=== PATIENT | female | born 1990 | race Caucasian/White ===

== ENCOUNTER 2016-11-11 19:48 | Emergency (ER) | payer SELFPAY ==
[~2016-11-11] VITALS: Ht 170.2 cm; Wt 62.0 kg
[~2016-11-11 19:48] MED LIST: AMOX875 PO; DICL25 PO; DOXY100T PO; METR-1 PO
[2016-11-11 20:16] VITALS: BP 106/52; PULSE 61; RESP 18; TEMP 98.3; O2SAT 100
[2016-11-11] MEDS ORDERED: BACT800T5 PO (20:29)
--- NOTE | 2016-11-11 20:29 | PD ---
HPI . Abscess Chief Complaint: Skin Problem Time Seen by Provider: 20:16 Travel History International Travel<30 days: No Contact w/Intl Traveler<30days: No Traveled to known affect area: No History of Present Illness HPI Patient presents with a one-week history of an abscess in the right eyebrow. She states that it started as a pimple. She states that she tried to pop the pimple and that she has subsequently developed increasing pain and swelling in the area. She states that she has tried to drain it at home and has only been able to drain some blood from the area. There has been no pus. Pain is a constant, throbbing sensation which she rates 10/10. No exacerbating or relieving factor. Patient has had no associated fevers or chills. PFSH Past Medical History Diminished Hearing: No Genitourinary: Yes (Ovarian cysts) Tetanus Vaccination: < 5 Years Influenza Vaccination: No ?: Not LMP: SEPTEMBER 2016, UNSURE OF DATE : 2 Para: 2 Miscarriage: 0 : 0 Past Surgical History Surgical History: No Previous Surgery Social History Alcohol Use: No Tobacco Use: Yes (1 PPD) Substance Use: Yes (MARIJUANA) Allergies-Medications (Allergen,Severity, Reaction): Coded Allergies: No Known Allergies (Unverified , 09/24/15) Reported Meds & Prescriptions Reported Meds & Active Scripts Active Bactrim DS (Sulfamethoxazole-Trimethoprim) 800-160 Mg Tab 1 Tab PO BID Voltaren (Diclofenac Sodium) 25 Mg Tab 25 Mg PO TID PRN Flagyl (Metronidazole) 500 Mg Tab 500 Mg PO TID TAKE UNTIL GONE Doxycycline Hyclate 100 mg (Doxycycline Hyclate) 100 Mg Tab 1 Tab PO Q12H 7 Days Amoxicillin 875 Mg Tab 875 Mg PO BID 10 Days Review of Systems Except as stated in HPI: all other systems reviewed are Neg General / Constitutional: No: Fever, Chills Skin: Positive Lesions Physical Exam Narrative GENERAL: Awake and alert and in no acute distress. SKIN: Warm and dry. Area of induration and tenderness in the right eyebrow. It is about 1 cm in diameter. There is central fluctuance. HEAD: Atraumatic. Normocephalic. EYES: Pupils equal and round. NECK: Trachea midline. CARDIOVASCULAR: Regular rate and rhythm. RESPIRATORY: No accessory muscle use. MUSCULOSKELETAL: No obvious deformities. No edema. NEUROLOGICAL: Awake and alert. No obvious cranial nerve deficits. Motor grossly within normal limits. Normal speech. PSYCHIATRIC: Appropriate mood and affect; insight and judgment normal. Data Data Last Documented VS Vital Signs Date Time Temp Pulse Resp B/P Pulse Ox O2 Delivery O2 Flow Rate FiO2 11/11/16 20:22 61 18 11/11/16 20:16 98.3 106/52 100 Orders Lidocaine 1% Inj (50 Ml) (Xylocaine 1% I (11/11/16 20:30) [facility] Medical Decision Making Medical Screen Exam Complete: Yes Emergency Medical Condition: Yes Differential Diagnosis My differential diagnosis includes but is not limited to localized wound infection, cellulitis, abscess Narrative Course Patient presents with an abscess in her right eyebrow. It will be I&D. She will then be placed on Septra. Procedures Procedure Narrative INCISION AND DRAINAGE OF ABSCESS: The area was prepped and was sterilely draped. A subcutaneous wheal of 1 % lidocaine with a total number 3 mL was used to anesthetize the area properly. A number 11 scalpel was used to make a 1 cm incision across the area of the abscess. The abscess was drained, complex loculations were broken down, and irrigated with normal saline. Cultures were obtained. Quarter inch iodoform packing was placed in the wound. Sterile dressing applied. Patient advised to have packing removed in two days. Diagnosis Primary Impression: Abscess Patient Instructions: Abscess Incision and Drainage (DC), General Instructions Additional Instructions: Return in 2 days for wound check Med/Other Pt SpecificInfo: Prescription(s) given Scripts Sulfamethoxazole-Trimethoprim (Bactrim DS)800-160 Mg Tab1 Tab PO BID #20 TAB Ref 0 Prov:Amber Payan MD 11/11/16 Disposition: 01 DISCHARGE HOME Condition: Stable Amber Payan MD Nov 11, 2016 20:29
[2016-11-11] MEDS ORDERED: LIDOCAINE HCL 1% 50 ML VIAL INFIL ONE (20:30)
== END 2016-11-11 21:06 | disposition home or self-care (01) ==
LOC: PHEFT 19:48
DX: L02.01 Cutaneous abscess of face (principal); B95.61 Methicillin susceptible Staphylococcus aureus infection as the cause of diseases classified elsewhere; F17.200 Nicotine dependence, unspecified, uncomplicated; Z87.42 Personal history of other diseases of the female genital tract
CPT/HCPCS: 10061; 86403; 87070; 87186; 87205

== ENCOUNTER 2017-05-21 18:20 | Emergency (ER) | payer OTHER ==
[~2017-05-21] VITALS: Ht 170.2 cm; Wt 59.1 kg
[~2017-05-21 18:20] MED LIST changes: +BACT800T5 PO
[2017-05-21 18:29] VITALS: BP 114/56; PULSE 68; RESP 12; TEMP 98.5; O2SAT 99
--- NOTE | 2017-05-21 21:27 | PD ---
Physical Exam Date Seen by Provider: May 21, 2017 Time Seen by Provider: 19:52 Narrative 26 year old female presents to the emergency department for evaluation of lower abdominal pain, vaginal spotting. She states she found out she was one month ago, but hasn't established with an OB yet. She denies any pain right now. Data Data Last Documented VS Vital Signs Date Time Temp Pulse Resp B/P (MAP) Pulse Ox O2 Delivery O2 Flow Rate FiO2 05/21/17 18:29 98.5 68 12 114/56 (75) 99 Orders Orders Beta Hcg (Quant/Titer) (05/21/17 18:34) Complete Blood Count With Diff (05/21/17 18:34) Basic Metabolic Panel (Bmp) (05/21/17 18:34) Urinalysis - C+S If Indicated (05/21/17 18:34) Ed Urine Pregnancytest Poc (05/21/17 18:34) MDM Supervised Visit with ARGENIS: No Narrative Course 26 year old female presents to the emergency department for evaluation of abdominal pain, vaginal spotting while . Patient is initially seen in triage and work up is initiated. Patient left AMA before she could be moved to a medical bed. Diagnosis Primary Impression: Left against medical advice Additional Impression: Vaginal spotting Disposition: 07 AGAINST MEDICAL ADVICE Alta Hyatt May 21, 2017 21:27
== END 2017-05-21 19:52 | disposition left against medical advice (07) ==
LOC: NED 18:20
DX: O26.851 Spotting complicating pregnancy, first trimester (principal); Z53.21 Procedure and treatment not carried out due to patient leaving prior to being seen by health care provider
CPT/HCPCS: 99281

== ENCOUNTER → 2017-07-16 | Outpatient (CLI) | payer MEDICAID, OTHER | LOC: HPND 13:16 | PROVIDERS: ATTEND Obstetrics & Gynecology | DX: O35.1XX0 Maternal care for (suspected) chromosomal abnormality in fetus, not applicable or unspecified (principal); O99.322 Drug use complicating pregnancy, second trimester; O09.212 Supervision of pregnancy with history of pre-term labor, second trimester | CPT/HCPCS: 76811; 76817 ==

== ENCOUNTER → 2017-07-30 | Outpatient (CLI) | payer MEDICAID | LOC: HPND 10:29 | PROVIDERS: ATTEND Obstetrics & Gynecology | DX: O99.322 Drug use complicating pregnancy, second trimester (principal); O09.212 Supervision of pregnancy with history of pre-term labor, second trimester | CPT/HCPCS: 76815; 76817 ==

== ENCOUNTER → 2017-08-13 | Outpatient (CLI) | payer MEDICAID | LOC: HPND 10:48 | PROVIDERS: ATTEND Obstetrics & Gynecology | DX: O99.322 Drug use complicating pregnancy, second trimester (principal); O09.212 Supervision of pregnancy with history of pre-term labor, second trimester; O99.332 Smoking (tobacco) complicating pregnancy, second trimester | CPT/HCPCS: 76816; 76817; 76825; 76827; 93325 ==

== ENCOUNTER → 2017-09-18 | Outpatient (CLI) | DX: O99.322 Drug use complicating pregnancy, second trimester (principal); O09.212 Supervision of pregnancy with history of pre-term labor, second trimester; O99.332 Smoking (tobacco) complicating pregnancy, second trimester ==

== ENCOUNTER → 2017-10-16 | Outpatient (CLI) | payer MEDICAID | LOC: HPND 10:23 | PROVIDERS: ATTEND Obstetrics & Gynecology | DX: O99.322 Drug use complicating pregnancy, second trimester (principal); O09.212 Supervision of pregnancy with history of pre-term labor, second trimester; O99.332 Smoking (tobacco) complicating pregnancy, second trimester | CPT/HCPCS: 76816 ==

== ENCOUNTER 2017-12-16 11:35 | Inpatient (IN) ==
--- NOTE | 2017-12-16 12:07 | P.HPOB ---
History of Present Illness Primary Care Physician: No Primary Care Physician History of Present Illness: This patient is a 27 yr G 3 p 0202 at 40 weeks and 6 days gestation with history of 2 deliveries both at 31 weeks gestation that was sent directly from ultrasound for induction of delivery. She [facility] She reports no complications with this . Endorses good movement. She denies leakage of fluid, vaginal bleeding, vaginal discharge. Reports that she is GBS unknown. OB Hx: 2 prior deliveries via spontaneous vaginal delivery, both at 31 weeks gestation. PMHx: None Surgical Hx: None Fam Hx: None Social Hx: Patient is an every day smoker and has smoked throughout the entirety of her . She smokes half a pack a day. She also smokes marijuana every 2 weeks with last use being 2 weeks ago. She lives at home with boyfriend, a cat, and her dog. Patient reports taking a 10 mg Lortab daily with last use being this morning. Patient admits that she discontinued care after winning the lottery. Meds: [id number] Flintstones vitamins and 40 mg of methadone daily but has not taken it in a couple of weeks. Allergies: None Weeks Gestation:: 40 Para: 2 : 3 - Inpatient Certification I certify that the inpatient services were ordered in accordance with Medicare regulations governing the order. This includes certification that hospital inpatient services are reasonable and necessary and in the case of services not specified as inpatient-only under 42 CFR 419.22(n), that they are appropriately provided as inpatient services in accordance to with the 2-midnight benchmark under 43 CFR 412.3(e) Estimated Total Length of Stay (Days): 2 Plans for Post Hospital Care: Home Review of Systems Constitutional: Denies chills, Denies fatigue, Denies fever(s), Denies headache( s) Eyes: Denies change in vision, Denies double vision, Denies loss of vision Cardiovascular: Reports foot swelling, Reports leg swelling, Denies chest pain, Denies fast heart rate, Denies rapid, pounding, or irregular heartbeat, Denies shortness of breath Respiratory: Denies shortness of breath, Denies shortness of breath with activity Gastrointestinal: Denies abdominal pain, Denies constipation, Denies loose stools, Denies nausea, Denies vomiting Genitourinary: Denies difficulty starting urination, Denies difficulty urinating , Denies painful urination, Denies pelvic pain, Denies urinary incontinence, Denies vaginal discharge Medications and Allergies Allergies Allergy/AdvReac Type Severity Reaction Status Date / Time No Known Allergies Allergy Verified 12/16/17 13:18 Home Medications Medication Instructions Recorded Confirmed Type methadone 40 mg PO DAILY 12/16/17 12/16/17 History Exam Narrative: GENERAL: Well-nourished, well-developed patient. SKIN: Warm and dry. HEAD: Normocephalic and atraumatic. EYES: No scleral icterus. No injection or drainage. ENT: No nasal drainage noted. Mucous membranes pink. Airway patent. NECK: Supple, trachea midline. No JVD. CARDIOVASCULAR: Regular rate and rhythm without murmurs, gallops, or rubs. RESPIRATORY: Breath sounds equal bilaterally. No accessory muscle use. ABDOMEN/GI: Abdomen soft, non-tender, bowel sounds present, no rebound, no guarding Gravid to 40 weeks size GENITOURINARY: External Genitalia: intact and normal in appearance Cervix: Soft Dilatation: 2 Effacement: 50% Station: -3 Presentation: Cephalic Membranes: Intact Uterine Contractions: None FHT's: Category: 1 Baseline: 100 Reactive: Yes Variability: Moderate Decels: No EXTREMITIES: Nonpitting edema bilaterally. BACK: Nontender without obvious deformity. No CVA tenderness. NEUROLOGICAL: Awake and alert. Moves all extremities without difficulty. Normal speech. Results - Labs CBC & Chem 7: 12/16/17 11:45 Group B Strep: unknown Caprini VTE Risk Assessment Caprini VTE Risk Assessment: No/Low Risk (score <= 1) Caprini Risk Assessment Model: Point Value = 1 Point Value = 2 Point Value = 3 Point Value = 5 Age 41-60 Minor surgery BMI > 25 kg/m2 Swollen legs Varicose veins or History of unexplained or recurrent spontaneous Oral contraceptives or hormone replacement Sepsis (< 1 month) Serious lung disease, including pneumonia (< 1 month) Abnormal pulmonary function Acute myocardial infarction Congestive heart failure (< 1 month) History of inflammatory bowel disease Medical patient at bed rest Age 61-74 Arthroscopic surgery Major open surgery (> 45 min) Laparoscopic surgery (> 45 min) Malignancy Confined to bed (> 72 hours) Immobilizing plaster cast Central venous access Age >= 75 History of VTE Family history of VTE Factor V Leiden Prothrombin [id number] Lupus anticoagulant Anticardiolipin antibodies Elevated serum homocysteine Heparin-induced thrombocytopenia Other congenital or acquired thrombophilia Stroke (< 1 month) Elective arthroplasty Hip, pelvis, or leg fracture Acute spinal cord injury (< 1 month) Prophylaxis Regimen: Total Risk Factor Score Risk Level Prophylaxis Regimen 0-1 Low Early ambulation 2 Moderate Order ONE of the following: *Sequential Compression Device (SCD) *Heparin 5000 units SQ BID 3-4 Higher Order ONE of the following medications: *Heparin 5000 units SQ TID *Enoxaparin/Lovenox 40 mg SQ daily (WT < 150 kg, CrCl > 30 mL/min) *Enoxaparin/Lovenox 30 mg SQ daily (WT < 150 kg, CrCl > 10-29 mL/min) *Enoxaparin/Lovenox 30 mg SQ BID (WT < 150 kg, CrCl > 30 mL/min) AND/OR *Sequential Compression Device (SCD) 5 or more Highest Order ONE of the following medications: *Heparin 5000 units SQ TID (Preferred with Epidurals) *Enoxaparin/Lovenox 40 mg SQ daily (WT < 150 kg, CrCl > 30 mL/min) *Enoxaparin/Lovenox 30 mg SQ daily (WT < 150 kg, CrCl > 10-29 mL/min) *Enoxaparin/Lovenox 30 mg SQ BID (WT < 150 kg, CrCl > 30 mL/min) AND *Sequential Compression Device (SCD) Assessment and Plan - Diagnosis (1) Encounter for induction of labor Code(s): Z34.90 - Encounter for supervision of normal , unspecified, unspecified trimester Status: Acute Plan: This patient is a 27 yr G 3 p 0202 at 40 weeks and 6 days gestation with history of 2 deliveries both at 31 weeks gestation that was sent directly from ultrasound for induction of delivery. This patient is over her due date and heart tracing was initially unreassuring during her ultrasound. Patient was also found to have a favorable soft cervix at 2cm dilation. In this setting it would be appropriate to begin induction of labor. Patient has requested an epidural. - Oxytocin on 06-06-29 schedule - Epidural for pain - Penicillin GBS prophylaxis - Fentanyl 50-100 mcg for pain - Monitor for opiate withdrawal sxs - Keep NPO - Continue routine intrapartum care - Follow up with GBS status and labs - Encourage OOB - Anticipate discharge 24 hours after uncomplicated vaginal delivery (2) Nutrition, metabolism, and development symptoms Code(s): R63.8 - Other symptoms and signs concerning food and fluid intake Status: Acute Plan: Fluids: NS at 100ml/hr rate alternated with D5 Electrolytes: Replete as needed Nutrition: NPO - Attending Attestation The exam, history, and the medical decision-making described in the above note were completed with the assistance of the resident physician. I reviewed and agree with the findings presented. I attest that I had a [id number] encounter with the patient on the same day, and personally performed and documented my assessment and findings in the medical record.
[2017-12-16] MEDS ORDERED: Oxytocin 30 Units/500ml Premix 30 UNITS/500 ML BAG IV.SIG ONE (12:32)
[2017-12-16] MEDS ORDERED: Naloxone Inj 0.4 MG/ML Vial IV.PUSH PRN ×2 (12:32→23:19)
[2017-12-16] MEDS ORDERED: Sod Chloride 0.9% Inj 1,000 ML IV.CONT PRN (12:32)
[2017-12-16] MEDS ORDERED: fentaNYL Citrate Inj 100 MCG/2 ML Ampul IV.PUSH PRN ×2 (12:32)
[2017-12-16] MEDS ORDERED: Sodium Chlor 0.9% Inj 500 ML IV.SIG PRN (12:32)
[2017-12-16] MEDS ORDERED: Oxytocin 30 Units/500ml Premix 30 UNITS/500 ML BAG IV.SIG PRN (12:37)
[2017-12-16] MEDS ORDERED: Citric Acid/Sodium Citrate Liq 30 ML UDC PO SCH (12:45)
[2017-12-16 12:54] LABS: Baso % (Auto) 0.2 % (0.0-2.0); Eos # (Auto) 0.1 th/mm3 (0.0-0.4); Eos % (Auto) 1.1 % (0.0-4.0); Hemoglobin 11.3 gm/dL (11.6-15.3); Lymph # (Auto) 1.4 th/mm3 (1.0-4.8); Lymph % (Auto) 20.4 % (9.0-44.0); Mean Corpuscular HGB Conc 34.1 % (32.0-36.0); Mean Corpuscular Hemoglobin 30.9 pg (27.0-34.0); Mean Corpuscular Volume 90.5 fL (80.0-100.0); Mean Platelet Volume 8.8 fL (7.0-11.0); Mono # (Auto) 0.6 th/mm3 (0.0-0.9); Mono % (Auto) 8.4 % (0.0-8.0); Neut # (Auto) 4.7 th/mm3 (1.8-7.7); Neut % (Auto) 69.9 % (16.0-70.0); Platelet Count 179 th/mm3 (150-450); Red Blood Count 3.64 mil/mm3 (4.00-5.30); Red Cell Distribution Width 13.3 % (11.6-17.2); White Blood Count 6.7 th/mm3 (4.0-11.0)
[2017-12-16 13:21] LABS: Bacteria,Urine Rare /hpf; Bilirubin,Urine Negative (Negative); Clarity,Urine Clear (Clear); Color,Urine Yellow (Yellw/Straw); Glucose,Urine (UA) Negative (Negative); Leukocyte Esterase,Urine Negative (Negative); Mucus,Urine Few /lpf (Occasional); Nitrite,Urine Negative (Negative); Specific Gravity,Urine 1.009 (1.002-1.035); Squamous Epithelial Cell,Urine 2 /hpf (0-5)
[2017-12-16 13:25] LABS: Amphetamine Urine With Conf Neg (Neg); Benzodiazepine Urine With Conf Neg (Neg)
[2017-12-16] MEDS ORDERED: Penicillin G Potassium Inj 5,000,000 UNIT in Sodium Chloride 0.9% Inj 100 ML IV.SIG ONE (14:00)
[2017-12-16 15:28] LABS: Hepatitits B Surface Antigen Nonreactive (Nonreactive)
[2017-12-16 15:57] LABS: Hepatitis A IgM Antibody Nonreactive (Nonreactive)
[2017-12-16] MEDS ORDERED: Diphtheria/Tetanus/Pertussis Vaccine Inj 0.5 ML Syringe IM ONE (16:00)
[2017-12-16] MEDS ORDERED: Measles/Mumps/Rubella Vaccine Inj 0.5 ML Vial SQ ONE (16:00)
[2017-12-16] MEDS ORDERED: Penicillin G Potassium Inj 2,500,000 UNIT in Sodium Chlor 0.9% Inj 100 ML IV.SIG SCH (18:00)
[2017-12-16 19:10] VITALS: RESP 18
[2017-12-16] MEDS ORDERED: fentaNYL 2MCG-Bupiv 0.125% Epi 150 ML EPIDURAL ONE (19:16)
[2017-12-16] MEDS ORDERED: fentaNYL 2MCG-Bupiv 0.125% Epi 150 ML EPIDURAL PRN (19:43)
[2017-12-16] MEDS ORDERED: fentaNYL Citrate Inj 100 MCG/2 ML Ampul EPIDURAL ONE (19:43)
[2017-12-16] MEDS ORDERED: Bupivacaine PF 0.25% Inj 10 ML Vial ONE (20:32)
[2017-12-16] MEDS ORDERED: Lidocaine PF 1.5% Inj 20 ML Ampule ONE (20:32)
[2017-12-16] MEDS ORDERED: Lidocaine 1% Inj 50 ML Vial ONE (21:14)
[2017-12-16] MEDS ORDERED: Acetaminophen 325 MG Tablet PO PRN (23:19)
[2017-12-16] MEDS ORDERED: Witch Hazel 50%/Glyderin 12.5% 40 Pad Jar RECTAL PRN (23:19)
[2017-12-16] MEDS ORDERED: Zolpidem Tartrate 5 MG Tablet PO PRN (23:19)
[2017-12-16] MEDS ORDERED: Bisacodyl 10 MG Supp RECTAL PRN (23:19)
[2017-12-16] MEDS ORDERED: Benzocaine 20% Top Spray 60 ML Can TOPICAL PRN (23:19)
--- NOTE | 2017-12-16 23:26 | P.OBDELI ---
Weeks Gestation: 40 Anesthesia: Epidural Episiotomy: none Vaginal Delivery: Normal, Spontaneous Presentation: Occiput anterior Nuchal Cord: None Delayed Cord Clamping (45 sec): Yes Placenta: Spontaneous delivery Laceration: 1 deg Repair: Chromic running Infant: Female Additional Information: Delivery date and Time: 12/16 and 22:43 Apgars 9/9 weight 7lb 11oz Labial laceration and midline perineal laceration repaired with 3-0 chromic and 1% lidocaine, repaired by Dr. Keith. Delivered by Dr. Keith Supervised by Dr. Parsons and Dr. Zapata The exam, history, and the medical decision-making described in the above note were completed with the assistance of the resident physician. I reviewed and agree with the findings presented. I attest that I had a [id number] encounter with the patient on the same day, and personally performed and documented my assessment and findings in the medical record.
[2017-12-16] MEDS ORDERED: Oxytocin 30 Units/500ml Premix 30 UNITS/500 ML BAG IV.CONT SCH (23:30)
[2017-12-16] MEDS: Ibuprofen 400 MG Tablet PO PRN (23:40)
[2017-12-17] MEDS: Ibuprofen 400 MG Tablet PO PRN ×2 (07:33→16:06)
--- NOTE | 2017-12-17 08:15 | P.PNOB ---
Subjective Post day: 1 Interval history: day #1 AFVSS overnight. Decreased lochia. Denies dysuria. No breast tenderness. Appetite good. No nausea or vomiting. Positive flatus/bowel movement. Ambulating well. Denies calf pain or shortness of breath. Otherwise, she is doing well this morning and has no other complaints. Objective Vital Signs/I&O: Vital Signs 12/16/17 12:35 12/16/17 14:00 12/16/17 14:30 Temperature Pulse Rate 79 Respiratory Rate 16 16 16 Blood Pressure 110/73 12/16/17 15:09 12/16/17 16:20 12/16/17 16:21 Temperature 98.3 F Pulse Rate 64 63 Respiratory Rate 16 16 Blood Pressure 98/51 L 113/59 L 12/16/17 16:56 12/16/17 17:00 12/16/17 17:31 Temperature 97.6 F Pulse Rate 70 60 72 Respiratory Rate 16 Blood Pressure 112/61 121/77 116/71 12/16/17 18:00 12/16/17 18:02 12/16/17 18:31 Temperature Pulse Rate 73 64 Respiratory Rate 16 Blood Pressure 119/73 112/59 L 12/16/17 19:00 12/16/17 19:09 12/16/17 19:15 Temperature 97.9 F Pulse Rate 64 Respiratory Rate 18 Blood Pressure 127/77 12/16/17 19:25 12/16/17 19:35 12/16/17 19:40 Temperature Pulse Rate 77 85 69 Respiratory Rate Blood Pressure 119/74 132/78 12/16/17 19:44 12/16/17 19:50 12/16/17 20:05 Temperature Pulse Rate 66 74 Respiratory Rate 18 18 18 Blood Pressure 114/69 12/16/17 20:31 12/16/17 21:10 12/16/17 21:15 Temperature Pulse Rate 78 73 Respiratory Rate 18 18 Blood Pressure 121/77 109/54 L 12/16/17 21:18 12/16/17 21:35 12/16/17 22:21 Temperature 99.5 F Pulse Rate 68 65 Respiratory Rate 18 Blood Pressure 107/60 12/16/17 22:31 12/16/17 23:05 12/16/17 23:20 Temperature Pulse Rate 67 64 Respiratory Rate 18 18 Blood Pressure 104/56 L 108/53 L 12/16/17 23:35 12/16/17 23:46 12/16/17 23:48 Temperature Pulse Rate 65 72 Respiratory Rate 18 18 Blood Pressure 123/72 119/62 12/17/17 00:05 12/17/17 00:22 Temperature 98.2 F Pulse Rate 62 Respiratory Rate 18 18 Blood Pressure 138/75 Intake & Output 12/16/17 12/17/17 12/17/17 18:59 06:59 18:59 Weight 70.76 kg Result Diagrams: 12/16/17 11:45 Objective Remarks: GENERAL: Well-nourished, well-developed patient. CARDIOVASCULAR: Regular rate and rhythm without murmurs, gallops, or rubs. RESPIRATORY: Breath sounds equal bilaterally. No accessory muscle use. ABDOMEN/GI: Abdomen soft, non-tender. Fundus: Firm, non-tender at umbilicus. GENITOURINARY: Light to moderate bleeding. EXTREMITIES: No cyanosis or edema, non-tender, without signs of DVT. Medications and IVs: Active Medications Acetaminophen (Tylenol) 650 mg PO Q4H PRN PRN Reason: PAIN SCALE 1 TO 2 Last Admin: 12/17/17 06:18 Dose: 650 mg Al Hydroxide/Mg Hydroxide (Milk Of Magnesia Liq) 30 ml PO Q12H PRN PRN Reason: Mild Constipation Benzocaine (Americaine 20% Top Gans) 1 spray TOPICAL Q4H PRN PRN Reason: For Perineum Discomfort Last Admin: 12/17/17 01:26 Dose: 1 spray Bisacodyl (Dulcolax Supp) 10 mg RECTAL DAILY PRN PRN Reason: SEVERE CONSITIPATION Ibuprofen (Motrin) 800 mg PO Q8H PRN PRN Reason: For cramping Last Admin: 12/17/17 07:33 Dose: 800 mg Lactulose (Lactulose Liq) 30 ml PO DAILY PRN PRN Reason: SEVERE CONSITIPATION Naloxone HCl (Narcan Inj) 0.1 mg IV.PUSH Q2M PRN PRN Reason: for opiate reversal Ondansetron HCl (Zofran Odt) 4 mg PO Q6H PRN PRN Reason: NAUSEA OR VOMITING Senna/Docusate Sodium (Perri-Colace) 1 tab PO BID KEATON Sennosides (Senokot) 17.2 mg PO Q12H PRN PRN Reason: Moderate Constipation Sodium Chloride (Ns Flush) 2 ml IV.FLUSH BID KEATON Sodium Chloride (Ns Flush) 2 ml IV.FLUSH PRN PRN PRN Reason: FLUSH AFTER USING IV ACCESS Witch Ruby/Glycerin (Tucks Pads) 1 applicatio RECTAL QID PRN PRN Reason: HEMORRHOIDS Last Admin: 12/17/17 01:25 Dose: 1 applicatio Zolpidem Tartrate (Ambien) 5 mg PO HS PRN PRN Reason: SLEEP Assessment and Plan - Diagnosis (1) Encounter for induction of labor Code(s): Z34.90 - Encounter for supervision of normal , unspecified, unspecified trimester Status: Acute (2) Nutrition, metabolism, and development symptoms Code(s): R63.8 - Other symptoms and signs concerning food and fluid intake Status: Acute - Plan 27y/o female who is PPD#1 s/p . -Continue routine care. -Motrin PRN pain. -Encouraged OOB. Advised pelvic rest for 6 wks. -Re: ctrl, she would like Depo-Provera. -D/c in 1-[address] Parsons
[2017-12-17] MEDS ORDERED: Senna/Docusate Sodium 8.6/50 MG Tablet PO SCH (09:00)
[2017-12-17] MEDS ORDERED: medroxyPROGESTERone Acetate Inj 150 MG/ML Syringe IM ONE (09:43)
[2017-12-17 12:05] LABS: Hematocrit 30.1 % (35.0-46.0); Hemoglobin 10.4 gm/dL (11.6-15.3)
--- NOTE | 2017-12-18 07:24 | P.PNOB ---
Subjective Interval history: day #2 AFVSS overnight. Decreased lochia. Denies dysuria. No breast tenderness. Appetite good. No nausea or vomiting. Positive flatus/bowel movement. Ambulating well. Denies calf pain or shortness of breath. Otherwise, she is doing well this morning and has no other complaints. Objective Vital Signs/I&O: Vital Signs 12/17/17 08:00 12/17/17 20:00 Temperature 99.0 F 98.5 F Pulse Rate 62 64 Respiratory Rate 18 18 Blood Pressure 120/69 109/59 L Result Diagrams: 12/17/17 11:43 Objective Remarks: GENERAL: Well-nourished, well-developed patient. CARDIOVASCULAR: Regular rate and rhythm without murmurs, gallops, or rubs. RESPIRATORY: Breath sounds equal bilaterally. No accessory muscle use. ABDOMEN/GI: Abdomen soft, non-tender. Fundus: Firm, non-tender at umbilicus. GENITOURINARY: Light to moderate bleeding. EXTREMITIES: No cyanosis or edema, non-tender, without signs of DVT. Medications and IVs: Active Medications Acetaminophen (Tylenol) 650 mg PO Q4H PRN PRN Reason: PAIN SCALE 1 TO 2 Last Admin: 12/17/17 06:18 Dose: 650 mg Al Hydroxide/Mg Hydroxide (Milk Of Magnesia Liq) 30 ml PO Q12H PRN PRN Reason: Mild Constipation Benzocaine (Americaine 20% Top Davilla) 1 spray TOPICAL Q4H PRN PRN Reason: For Perineum Discomfort Last Admin: 12/17/17 01:26 Dose: 1 spray Bisacodyl (Dulcolax Supp) 10 mg RECTAL DAILY PRN PRN Reason: SEVERE CONSITIPATION Ibuprofen (Motrin) 800 mg PO Q8H PRN PRN Reason: For cramping Last Admin: 12/17/17 16:06 Dose: 800 mg Lactulose (Lactulose Liq) 30 ml PO DAILY PRN PRN Reason: SEVERE CONSITIPATION Naloxone HCl (Narcan Inj) 0.1 mg IV.PUSH Q2M PRN PRN Reason: for opiate reversal Ondansetron HCl (Zofran Odt) 4 mg PO Q6H PRN PRN Reason: NAUSEA OR VOMITING Senna/Docusate Sodium (Perri-Colace) 1 tab PO BID KEATON Sennosides (Senokot) 17.2 mg PO Q12H PRN PRN Reason: Moderate Constipation Sodium Chloride (Ns Flush) 2 ml IV.FLUSH BID KEATON Last Admin: 12/18/17 06:30 Dose: Not Given Sodium Chloride (Ns Flush) 2 ml IV.FLUSH PRN PRN PRN Reason: FLUSH AFTER USING IV ACCESS Witch Ruby/Glycerin (Tucks Pads) 1 applicatio RECTAL QID PRN PRN Reason: HEMORRHOIDS Last Admin: 12/17/17 01:25 Dose: 1 applicatio Zolpidem Tartrate (Ambien) 5 mg PO HS PRN PRN Reason: SLEEP Assessment and Plan - Diagnosis (1) Encounter for induction of labor Code(s): Z34.90 - Encounter for supervision of normal , unspecified, unspecified trimester Status: Acute (2) Nutrition, metabolism, and development symptoms Code(s): R63.8 - Other symptoms and signs concerning food and fluid intake Status: Acute - Plan 27y/o female who is PPD#2 s/p . -Continue routine care. -Motrin PRN pain. -Encouraged OOB. Advised pelvic rest for 6 wks. -Re: ctrl, she has received Depo-Provera. -D/c likely today. guadalupe Priest
--- NOTE | 2017-12-18 08:45 | P.PNOB ---
Subjective Interval history: Patient is a 27-year-old G 3 p 3 delivered at 40 weeks and 2 days. Patient is day 2 after induction and normal vaginal delivery. Patient's pain is well-controlled. Patient reports eating and drinking without nausea or vomiting. She reports minimal vaginal bleeding and is ambulating well. Patient is urinating and having normal BMs without any pain or difficulty. Patient denies any chest pain, shortness of breath, nausea, vomiting, fever, chills, calf pain, or new lower extremity swelling. Objective Vital Signs/I&O: Vital Signs 12/17/17 20:00 Temperature 98.5 F Pulse Rate 64 Respiratory Rate 18 Blood Pressure 109/59 L Result Diagrams: 12/17/17 11:43 Objective Remarks: GENERAL: Well-nourished, well-developed patient. CARDIOVASCULAR: Regular rate and rhythm without murmurs, gallops, or rubs. RESPIRATORY: Breath sounds equal bilaterally. No accessory muscle use. ABDOMEN/GI: Abdomen soft, non-tender. Fundus: Firm, non-tender at umbilicus. GENITOURINARY: Light to moderate bleeding. EXTREMITIES: No cyanosis or edema, non-tender, without signs of DVT. Medications and IVs: Active Medications Acetaminophen (Tylenol) 650 mg PO Q4H PRN PRN Reason: PAIN SCALE 1 TO 2 Last Admin: 12/17/17 06:18 Dose: 650 mg Al Hydroxide/Mg Hydroxide (Milk Of Magnesia Liq) 30 ml PO Q12H PRN PRN Reason: Mild Constipation Benzocaine (Americaine 20% Top [place]) 1 spray TOPICAL Q4H PRN PRN Reason: For Perineum Discomfort Last Admin: 12/17/17 01:26 Dose: 1 spray Bisacodyl (Dulcolax Supp) 10 mg RECTAL DAILY PRN PRN Reason: SEVERE CONSITIPATION Ibuprofen (Motrin) 800 mg PO Q8H PRN PRN Reason: For cramping Last Admin: 12/17/17 16:06 Dose: 800 mg Lactulose (Lactulose Liq) 30 ml PO DAILY PRN PRN Reason: SEVERE CONSITIPATION Naloxone HCl (Narcan Inj) 0.1 mg IV.PUSH Q2M PRN PRN Reason: for opiate reversal Ondansetron HCl (Zofran Odt) 4 mg PO Q6H PRN PRN Reason: NAUSEA OR VOMITING Senna/Docusate Sodium (Perri-Colace) 1 tab PO BID [place] Sennosides (Senokot) 17.2 mg PO Q12H PRN PRN Reason: Moderate Constipation Sodium Chloride (Ns Flush) 2 ml IV.FLUSH BID KE[place] Last Admin: 12/18/17 06:30 Dose: Not Given Sodium Chloride (Ns Flush) 2 ml IV.FLUSH PRN PRN PRN Reason: FLUSH AFTER USING IV ACCESS Witch Ruby/Glycerin (Tucks Pads) 1 applicatio RECTAL QID PRN PRN Reason: HEMORRHOIDS Last Admin: 12/17/17 01:25 Dose: 1 applicatio Zolpidem Tartrate (Ambien) 5 mg PO HS PRN PRN Reason: SLEEP Assessment and Plan - Diagnosis (1) Encounter for induction of labor Code(s): Z34.90 - Encounter for supervision of normal , unspecified, unspecified trimester Status: Acute Plan: Patient is a 27-year-old G 3 p 3 delivered at 40 weeks and 2 days. Patient is day 2 after induction and normal vaginal delivery. Patient was counseled to do 6 weeks of pelvic rest. Patient was counseled to follow up in 6 weeks. Patient requested follow-up and contraception. Patient to be discharged today her will continue care in the NICU. --AF VSS --Continue routine care --Motrin --Encourage OOB --Pelvic rest for 6 weeks will need follow-up appointment at that time. --Patient received Depo-Provera injection yesterday --Anticipate discharge today (2) Nutrition, metabolism, and development symptoms Code(s): R63.8 - Other symptoms and signs concerning food and fluid intake Status: Acute Plan: Fluids: Not indicated at this time Electrolytes: Replete as needed Nutrition: Regular diet - Plan 27y/o female who is PPD#2 s/p . -Continue routine care. -Motrin PRN pain. -Encouraged OOB. Advised pelvic rest for 6 wks. -Re: ctrl, she has received Depo-Provera. -D/c likely today. meiw Dr. Priest
[2017-12-18 08:47] VITALS: BP 114/61; PULSE 57; TEMP 98.9
[2017-12-18] MEDS: Ibuprofen 400 MG Tablet PO PRN (09:22)
[2017-12-19] MEDS ORDERED: Prenatal Vit/Ca/Iron/Folic Acid Tablet PO SCH (09:00)
[2017-12-19] MEDS ORDERED: Ferrous Sulfate 325 MG Tablet PO SCH (09:00)
== END 2017-12-18 11:01 | disposition home or self-care (01) ==
LOC: H2E 11:35 → H1EA 12-17 00:17
PROVIDERS: ADMIT Obstetrics & Gynecology; ATTEND Obstetrics & Gynecology